=== PATIENT | female | born 2000 | race Caucasian/White ===

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

== ENCOUNTER 2023-01-07 01:16 | Emergency (ER) | payer OTHER ==
[~2023-01-07] VITALS: Ht 152.4 cm; Wt 77.1 kg
[2023-01-07 01:39] VITALS: BP 125/79
--- NOTE | 2023-01-07 01:43 | NUR ---
to restroom for urine then lobby
--- NOTE | 2023-01-07 01:46 | NUR ---
Urine collected sent to lab
[2023-01-07 01:56] LABS: APPEARANCE,URINE SL CLOUDY (CLEAR); BILIRUBIN,URINE NEGATIVE (NEGATIVE); BLOOD, URINE NEGATIVE (NEGATIVE); COLOR,URINE YELLOW (YELLOW); LEUKOCYTE ESTERASE ,URINE TRACE (NEGATIVE); NITRITE, URINE NEGATIVE (NEGATIVE); UGLUCOSE NEGATIVE (NEGATIVE)
[2023-01-07 02:24] LABS: RBC,URINE 0-5 /HPF (0-5); WBC,URINE 0-5 /HPF (0-5)
--- NOTE | 2023-01-07 02:31 | NUR ---
PT TO BED #5
[2023-01-07] MEDS ORDERED: KETOROLAC 60 MG/2 ML VIAL IM ONE (02:45)
[2023-01-07] MEDS ORDERED: ONDANSETRON 4 MG ODT PO ONE (02:45)
[2023-01-07] MEDS ORDERED: ONDA8TAB87 PO (03:04)
[2023-01-07] MEDS ORDERED: LOPE-289 PO (03:04)
[2023-01-07] MEDS ORDERED: IBUP-2213 PO (03:04)
[2023-01-07 03:17] VITALS: BP 122/78
--- NOTE | 2023-01-07 03:17 | NUR ---
Patient discharged with v/s stable. Written and verbal after care instructions given and explained. Patient alert, oriented and verbalized understanding of instructions. Ambulatory with steady gait. All questions addressed prior to discharge. ID band removed. Patient advised to follow up with PMD. Rx of MOTRIN, ZOFRAN, IMODIUM given. Patient educated on indication of medication including possible reaction and side effects. Opportunity to ask questions provided and answered.
== END 2023-01-07 03:17 | disposition home or self-care (01) ==
LOC: MED 01:16
DX: R10.12 Left upper quadrant pain (principal); R11.2 Nausea with vomiting, unspecified; R19.7 Diarrhea, unspecified
CPT/HCPCS: 81001; 81025; 87086; 96372; 99283; J1885; Q0162

== ENCOUNTER 2023-03-11 13:55 | Emergency (ER) | payer OTHER ==
[~2023-03-11] VITALS: Ht 147.3 cm; Wt 77.1 kg
[~2023-03-11 13:55] MED LIST changes: +IBUP-2213 PO; +LOPE-289 PO; +ONDA8TAB87 PO
[2023-03-11 14:00] VITALS: BP 116/69
[2023-03-11] MEDS ORDERED: ACETAMINOPHEN 325 MG TAB PO ONE (14:15)
--- NOTE | 2023-03-11 15:35 | NUR ---
Patient discharged with v/s stable. Written and verbal after care instructions given and explained. Patient verbalized understanding. Ambulatory with steady gait. All questions addressed prior to discharge. Advised to follow up with PMD.
== END 2023-03-11 15:34 | disposition home or self-care (01) ==
LOC: MED 13:55
DX: Z00.00 Encounter for general adult medical examination without abnormal findings (principal); V49.88XA Car occupant (driver) (passenger) injured in other specified transport accidents, initial encounter; Y93.89 Activity, other specified; Y92.89 Other specified places as the place of occurrence of the external cause; Y99.8 Other external cause status
CPT/HCPCS: 81025; 99282

== ENCOUNTER 2023-12-13 13:21 | Emergency (ER) | payer OTHER ==
[~2023-12-13] VITALS: Ht 160 cm; Wt 77.1 kg
[2023-12-13 13:23] VITALS: BP 111/76; PULSE 84; RESP 19; TEMP 98.6; O2SAT 99
[2023-12-13] MEDS ORDERED: BENZ-300 PO (13:42)
[2023-12-13] MEDS: DEXAMETHASONE 10 MG/ML VIAL PO STA (13:52)
== END 2023-12-13 14:15 | disposition home or self-care (01) ==
LOC: MED 13:21
DX: J02.8 Acute pharyngitis due to other specified organisms (principal); B97.89 Other viral agents as the cause of diseases classified elsewhere; Z79.899 Other long term (current) drug therapy
CPT/HCPCS: 87081; 99283; J1100